=== PATIENT | female | born 1945 | race Caucasian/White ===

== ENCOUNTER 2020-07-08 06:16 | Day surgery (SDC) | payer OTHER ==
[2020-07-06 11:49] VITALS: BMI 41.6
[2020-07-08 08:05] VITALS: TEMP 97.7
[2020-07-08 08:47] VITALS: BP 130/59; PULSE 62
== END 2020-07-08 09:14 | disposition home or self-care (01) ==
LOC: JASU-ENDO 06:16
PROVIDERS: ATTEND Internal Medicine Gastroenterology
PROC: 0DBN8ZX Excision of Sigmoid Colon, Via Natural or Artificial Opening Endoscopic, Diagnostic (ICD-10-PCS; 2020-07-08)
PROC: 0DBH8ZX Excision of Cecum, Via Natural or Artificial Opening Endoscopic, Diagnostic (ICD-10-PCS; principal; 2020-07-08 07:00)
DX: Z12.11 Encounter for screening for malignant neoplasm of colon (principal); D12.0 Benign neoplasm of cecum; D12.5 Benign neoplasm of sigmoid colon; K57.30 Diverticulosis of large intestine without perforation or abscess without bleeding
CPT/HCPCS: 88305-TC